=== PATIENT | female | born 1990 | race Caucasian/White ===

== ENCOUNTER 2017-04-14 18:08 | Emergency (ER) | payer OTHER ==
[~2017-04-14] VITALS: Ht 162.6 cm; Wt 96.5 kg
[~2017-04-14 18:08] MED LIST: PNV1TABL4 PO
[2017-04-14 18:14] VITALS: Ht 162.6 cm; Wt 96.5 kg
[2017-04-14] MEDS ORDERED: FAMOTIDINE 20 MG TAB PO STA (19:32)
[2017-04-14] MEDS ORDERED: ONDANSETRON (ODT) 4 MG TAB ODT STA (19:32)
[2017-04-14] MEDS ORDERED: HYDROCODONE/APAP (5/325) TAB PO ONE (20:00)
[2017-04-14 20:09] LABS: ADD UMIC YES; URINE BILIRUBIN (Dip) NEGATIVE (NEGATIVE); URINE BLOOD (Dip) 1+ (NEGATIVE); URINE COLOR LT. YELLOW (YELLOW); URINE GLUCOSE (Dip) NEGATIVE (NEGATIVE); URINE KETONES (Dip) NEGATIVE (NEGATIVE); URINE LEUKOCYTE ESTERASE (Dip) NEGATIVE (NEGATIVE); URINE NITRITE (Dip) NEGATIVE (NEGATIVE); URINE TOTAL PROTEIN (Dip) NEGATIVE (NEGATIVE); URINE UROBILINOGEN (Dip) 0.2 E.U./dL (0.1-1.0)
--- NOTE | 2017-04-14 20:10 | RADRPT ---
PROCEDURE: US Abdomen (right upper quadrant). CLINICAL INDICATION: Abdominal pain. TECHNIQUE: Multiple real-time longitudinal and transverse images of the right upper quadrant of th e abdomen were acquired utilizing a curved array transducer. Images were reviewed on a high-resoluti on PACS workstation. COMPARISON: None FINDINGS: Suboptimal study due to the patient's body habitus. The liver is normal in size and grossly unremarkable in echogenicity without focal mass or intrahepa tic biliary dilatation. The gallbladder is not visualized likely due to contraction. No intra or extrahepatic biliary dilatation is seen. The common bile duct measures 3.7 mm in maximal dimension. The visualized portions of the pancreas are unremarkable with obscuration of the tail of the pancr eas. No free fluid is identified. The right kidney measures 10.9 cm in length. There is normal echogenicity within the right kidney. There is no perinephric fluid collection. No hydronephrosis, mass, or calculus is seen. IMPRESSION: 1. Suboptimal study. 2. The gallbladder is not visualized likely due to contraction. Otherwise unremarkable right upper quadrant ultrasound. RPTAT: HH .Yisel Rockwell MD, MD Date Time Electronically viewed and signed by .Yisel Rockwell MD, MD on 04/14/2017 20:09 .N/
[2017-04-14 20:19] LABS: SQUAMOUS EPITHELIAL CELL,UR FEW; URINE RBCS 0-2 /HPF (0)
[2017-04-14] MEDS ORDERED: METO10TA92 PO (20:28)
[2017-04-14 20:30] LABS: ADD SCAN DIFF NO
--- NOTE | 2017-04-14 20:32 | ERD ---
ER Documentation Chief Complaint Date/Time DATE: 04/14/17 TIME: 20:30 Chief Complaint ABDOMINAL PAIN TODAY HPI This 27-year-old female presents with upper abdominal pain and vomiting started today. She denies any specific right-sided or lower abdominal pain patient has urinary complaints in the vomit is nonbilious nonbloody. Denies any fevers or diarrhea or urinary complaints. Last menstrual period was approximately 1 month ago. ROS All systems reviewed and are negative except as per history of present illness. Medications Home Meds Active Scripts Metoclopramide* (Reglan*) 10 Mg Tablet, 10 MG PO Q6 Y for NAUSEA AND/OR VOMITING , #10 TAB Prov:RAJEEV FLORES MD 04/14/17 Reported Medications Pnv Cmb#95/Ferrous Fumarate/Fa ( MULTIVITAMINS TABLET) 1 Each Tablet, 1 EACH PO DAILY 12/09/13 [None] No Conflict Check 02/04/10 Allergies Allergies: Coded Allergies: No Known Allergies (Verified Allergy, Mild, 02/04/10) PMhx/Soc Medical and Surgical Hx: pt denies Medical Hx, pt denies Surgical Hx History of Surgery: No Hx Neurological Disorder: No Hx Respiratory Disorders: No Hx Cardiac Disorders: No Hx Miscellaneous Medical Probl: No Hx Alcohol Use: No Hx Substance Use: No Hx Tobacco Use: No Smoking Status: Never smoker Physical Exam Vitals Vital Signs Date Time Temp Pulse Resp B/P Pulse Ox O2 Delivery O2 Flow Rate FiO2 04/14/17 18:14 99.2 82 18 132/83 100 Physical Exam Const: [] Alert, [id number] per Head: Atraumatic Eyes: Normal Conjunctiva ENT: Normal External Ears, Nose and Mouth. Neck: Full range of motion..~ No meningismus. Resp: Clear to auscultation bilaterally Cardio: Regular rate and rhythm, no murmurs Abd: Soft, minimal upper abdominal tenderness midepigastric area. No exquisite Menendez centimeters at McBurney's point., non distended. Normal bowel sounds Skin: No petechiae or rashes Back: No midline or flank tenderness Ext: No cyanosis, or edema Neur: Awake and alert Psych: Normal Mood and Affect Results 24 hrs Laboratory Tests Test 04/14/17 19:45 Urine Color LT. YELLOW Urine Clarity CLEAR Urine pH 6.0 Urine Specific Bryant 1.020 Urine Ketones NEGATIVE Urine Nitrite NEGATIVE Urine Bilirubin NEGATIVE Urine Urobilinogen 0.2 E.U./dL Urine Leukocyte Esterase NEGATIVE Urine Microscopic RBC 0-2/HPF Urine Microscopic WBC 0-2/HPF Urine Squamous Epithelial Cells FEW Urine Hemoglobin 1+ Urine Glucose NEGATIVE% Urine Total Protein NEGATIVE Current Medications Medications (Trade) Dose Ordered Sig/Nicholas Route PRN Reason Start Time Stop Time Status Last Admin Dose Admin Famotidine (Pepcid) 20 mg ONCE STAT PO 04/14/17 19:32 04/14/17 19:34 DC Acetaminophen/ Hydrocodone Bitart ([place] (5/325)) 1 tab ONCE ONCE PO 04/14/17 20:00 04/14/17 20:00 DC Ondansetron HCl (Zofran Odt) 8 mg ONCE STAT ODT 04/14/17 19:32 04/14/17 19:34 DC Procedures/MDM Patient has an hCG which appears to be faint positive. Quantitative hCG is pending. Urine shows 1+ hemoglobin, otherwise no leukocytes, nitrites or glucose. Patient is given Zofran 8 mg of mouth felt better after observation treatment with a benign abdomen. CBC and CMP were obtained and are pending. Right upper quadrant ultrasound shows inability to visualize the gallbladder due to body habitus but there is no common bile duct dilatation. Patient will be signed out to nurse practitioner jairo and supervising ER physician. Patient may have vomiting of early . Patient is improved with Zofran and currently suspicion of appendicitis, acute abdomen, emergent causes of patient's presenting symptoms are low. Departure Diagnosis: Primary Impression: Vomiting Vomiting type: unspecified Vomiting Intractability: unspecified Nausea presence: unspecified Qualified Code: R11.10 - Vomiting, intractability of vomiting not specified, presence of nausea not specified, unspecified vomiting type Condition: Stable Patient Instructions: , New Dx, Vomiting (6Y-Adult) Referrals: RADIO PROGRAM DIRECTOR [place] [id number] [address] [place] [address] [facility] [id number] [place] [id number] [address] PAZ, [facility] [address], [address] [address] DR JO, [facility] [address] [facility], [place] [address] [facility] [address] [place] [address] [facility], [facility] [address] [address] HOWELL, GUER[place] [address], [place] [address] DR CESPEDES, ANGY [address] [facility], [place] [address] DR LOBATO, [facility] [address] [place] [address] Additional Instructions: Symptoms likely due to . See OB for follow-up or return for bleeding, new worsening symptoms. Recheck in 2 days for abdominal pain or bleeding. RAJEEV FLORES MD April 14, 2017 20:32
[2017-04-14 20:34] LABS: BASOPHILS % 0.2 % (0.0-2.0); EOSINOPHILS # 0.1 10^3/ul (0.0-0.5); EOSINOPHILS % 0.5 % (0.0-7.0); HEMOGLOBIN 13.2 g/dl (12.0-16.0); LYMPHOCYTES # 1.5 10^3/ul (0.8-2.9); LYMPHOCYTES % 14.4 % (15.0-51.0); MEAN CORPUSCULAR HEMOGLOBIN 28.1 pg (29.0-33.0); MEAN CORPUSCULAR VOLUME 85.3 fl (82.0-101.0); MEAN PLATELET VOLUME 10.2 fl (7.4-10.4); MONOCYTE # 0.6 10^3/ul (0.3-0.9); MONOCYTES % 5.6 % (0.0-11.0); NEUTROPHILS % 78.8 % (39.0-77.0); PLATELET COUNT 272 10^3/UL (140-415); RED BLOOD COUNT 4.69 10^6/ul (4.20-5.40); RED CELL DISTRIBUTION WIDTH 13.3 % (11.5-14.5); WHITE BLOOD COUNT 10.2 10^3/ul (4.8-10.8)
[2017-04-14 20:56] LABS: ALBUMIN 4.1 g/dl (3.3-4.9); ALBUMIN/GLOBULIN RATIO 1.07; CALCIUM 9.5 mg/dl (8.4-10.2); CREATININE 0.68 mg/dl (0.44-1.00); POTASSIUM 4.4 mmol/L (3.5-5.1); TOTAL PROTEIN 7.9 g/dl (6.1-8.1)
--- NOTE | 2017-04-14 21:24 | RADRPT ---
PROCEDURE: US Obstetric less than 14 weeks. CLINICAL INDICATION: . Evaluate size and dates. TECHNIQUE: Transabdominal and transvaginal imaging of the pelvis was performed. Images are review ed on a high-resolution PACS workstation. COMPARISON: None available FINDINGS: Irregularly shaped anechoic collection is present within the endometrial cavity, measuring 20 x 4 x 21 mm, possibly gestational sac. No structures are identified. Collection size corresponds t o 6 weeks 1 day gestational age. Bilateral ovaries are unremarkable. No ovarian torsion, adnexal mass or pelvic free fluid is seen. IMPRESSION: 1. Irregularly shaped collection is present within the endometrial cavity, as above, possibly early gestational sac. Viability cannot be confirmed at this time. Given irregular shape, possibility of failed early should be considered. Continued sonographic follow-up is recommended. 2. No sonographic evidence of ectopic gestation is seen at this time. RPTAT: HDWR .Adryan Hoang MD, MD Date Time Electronically viewed and signed by .Adryan Hoang MD, on 04/14/2017 21:24 .R/
--- NOTE | 2017-04-14 21:37 | QN ---
Documentation Comment Dr Monet Lopez signed out this patient to me with pending ultrasound results, beta hCG quantitative results. Results were reviewed, but hCG quantitative is less than 2.4, ultrasound was reviewed, there is an irregular shaped possibly early gestational sac can be symptoms of early failed . Further follow up with OB doctor or repeat ultrasound is recommended for further evaluation and checking of the EGD quantitative. Patient is advised to follow-up with OB doctor or here in emergency department within 48 hours for repeat beta hCG and possibly repeat ultrasound within one week. Low suspicion for ectopic at this time. Patient's pain is controlled at this time. Patient is discharged according to Monet Lopez instructions PROCEDURE: US Obstetric less than 14 weeks. CLINICAL INDICATION: . Evaluate size and dates. TECHNIQUE: Transabdominal and transvaginal imaging of the pelvis was performed. Images are reviewed on a high-resolution PACS workstation. COMPARISON: None available FINDINGS: Irregularly shaped anechoic collection is present within the endometrial cavity , measuring 20 x 4 x 21 mm, possibly gestational sac. No structures are identified. Collection size corresponds to 6 weeks 1 day gestational age. Bilateral ovaries are unremarkable. No ovarian torsion, adnexal mass or pelvic free fluid is seen. IMPRESSION: 1. Irregularly shaped collection is present within the endometrial cavity, as above, possibly early gestational sac. Viability cannot be confirmed at this time. Given irregular shape, possibility of failed early should be considered. Continued sonographic follow-up is recommended. 2. No sonographic evidence of ectopic gestation is seen at this time. RPTAT: HDWR .Adryan Hoang MD, MD Date Time Electronically viewed and signed by .Adryan Hoang MD, MD on 04/14/2017 21: 24 .R/ CC: RAYA GRECO NP Disposition. Home. Stable RAYA GRECO NP April 14, 2017 21:37
== END 2017-04-14 21:59 | disposition home or self-care (01) ==
LOC: FTE 18:08
DX: R11.10 Vomiting, unspecified (principal)
CPT/HCPCS: 76705; 76801; 76817; 80053; 81001; 83690; 84702; 85025; Z7610; 81003

== ENCOUNTER 2017-04-19 11:16 | Emergency (ER) | payer OTHER ==
[~2017-04-19] VITALS: Wt 95.0 kg
[~2017-04-19 11:16] MED LIST changes: +METO10TA92 PO
[2017-04-19 13:35] LABS: ADD SCAN DIFF NO
[2017-04-19 13:41] LABS: ADD UMIC YES; URINE BILIRUBIN (Dip) NEGATIVE (NEGATIVE); URINE BLOOD (Dip) 3+ (NEGATIVE); URINE COLOR LT. YELLOW (YELLOW); URINE GLUCOSE (Dip) NEGATIVE (NEGATIVE); URINE KETONES (Dip) NEGATIVE (NEGATIVE); URINE LEUKOCYTE ESTERASE (Dip) NEGATIVE (NEGATIVE); URINE NITRITE (Dip) NEGATIVE (NEGATIVE); URINE TOTAL PROTEIN (Dip) NEGATIVE (NEGATIVE); URINE UROBILINOGEN (Dip) 0.2 E.U./dL (0.1-1.0)
[2017-04-19 13:44] LABS: BASOPHILS % 0.3 % (0.0-2.0); EOSINOPHILS # 0.1 10^3/ul (0.0-0.5); EOSINOPHILS % 1.5 % (0.0-7.0); HEMATOCRIT 41.2 % (37.0-47.0); HEMOGLOBIN 13.5 g/dl (12.0-16.0); LYMPHOCYTES # 1.9 10^3/ul (0.8-2.9); LYMPHOCYTES % 25.2 % (15.0-51.0); MEAN CORPUSCULAR HGB CONC 32.8 g/dl (32.0-37.0); MEAN CORPUSCULAR VOLUME 85.5 fl (82.0-101.0); MONOCYTE # 0.5 10^3/ul (0.3-0.9); MONOCYTES % 7.1 % (0.0-11.0); NEUTROPHIL # 4.8 10^3/ul (1.6-7.5); NEUTROPHILS % 65.5 % (39.0-77.0); PLATELET COUNT 267 10^3/UL (140-415); RED BLOOD COUNT 4.82 10^6/ul (4.20-5.40); RED CELL DISTRIBUTION WIDTH 13.2 % (11.5-14.5); WHITE BLOOD COUNT 7.3 10^3/ul (4.8-10.8)
--- NOTE | 2017-04-19 14:08 | RADRPT ---
PROCEDURE: US Pelvis. CLINICAL INDICATION: vaginal bleeding TECHNIQUE: Multiple sonographic images of the pelvis were obtained utilizing a transabdominal and endovaginal technique. The images were reviewed on a PACS workstation. COMPARISON: 04/14/17 FINDINGS: The uterus is normal in size and demonstrates a normal appearance of the myometrium. The endometria l stripe is homogeneous in appearance and has the thickness of 3 mm. No intrauterine gestation is noted. The previously seen cystic structure within the endometrium is no longer visualized. The right ovary was not seen. The left ovary measures 2.4 x 1.3 x 1.9 cm. No free fluid is present within the pelvis.. RPTAT: AA IMPRESSION: No intrauterine gestation visualized. Previously seen fluid collection in the endometrium is no longer visualized. Differential diagnosis includes early , missed or ectopic . Follow-up ultrasound and HCG levels is recommended. .Matthias Chaudhry MD, MD Date Time Electronically viewed and signed by .Matthias Chaudhry MD, on 04/19/2017 14:07 .S/
--- NOTE | 2017-04-19 14:35 | ERD ---
ER Documentation Chief Complaint Date/Time DATE: 04/19/17 TIME: 14:31 Chief Complaint 6 weeks regnant with spotting HPI This is a 27-year-old female presents to the ER for follow-up. Patient was seen here last week and had a positive test, however intrauterine gestational was not seen on ultrasound. Patient states that she began to bleed more as if she is on her period. She is also complaining of mild pelvic cramping. She denies any vaginal discharge. She denies any urinary frequency or dysuria. Her vomiting has resolved. A0. Had her last normal menstrual period was April 03, 2017. ROS 12 point review of systems was done, all negative except per HPI. Medications Home Meds Active Scripts Metoclopramide* (Reglan*) 10 Mg Tablet, 10 MG PO Q6 Y for NAUSEA AND/OR VOMITING , #10 TAB Prov:RAJEEV FLORES MD 04/14/17 Reported Medications Pnv Cmb#95/Ferrous Fumarate/Fa ( MULTIVITAMINS TABLET) 1 Each Tablet, 1 EACH PO DAILY 12/09/13 [None] No Conflict Check 02/04/10 Allergies Allergies: Coded Allergies: No Known Allergies (Verified Allergy, Mild, 04/19/17) PMhx/Soc Medical and Surgical Hx: pt denies Medical Hx, pt denies Surgical Hx History of Surgery: No Hx Neurological Disorder: No Hx Respiratory Disorders: No Hx Cardiac Disorders: No Hx Miscellaneous Medical Probl: No Hx Alcohol Use: No Hx Substance Use: No Hx Tobacco Use: No Smoking Status: Never smoker Physical Exam Vitals Vital Signs Date Time Temp Pulse Resp B/P Pulse Ox O2 Delivery O2 Flow Rate FiO2 04/19/17 11:18 97.9 89 18 127/87 99 Physical Exam GENERAL: The patient is well developed and appropriate for usual state of health , in no apparent distress. HEENT: Atraumatic. CHEST: Clear to auscultation bilaterally. There are no rales, wheezes or rhonchi. HEART: Regular rate and rhythm. No murmurs, clicks, rubs or gallops. ABDOMEN: Soft, nontender and nondistended. Good bowel sounds. No rebound or guarding. No gross peritonitis. No gross organomegaly or masses. No Menendez sign or McBurney point tenderness. BACK: No midline or flank tenderness. NEURO: Alert and oriented Result Diagram: 04/19/17 1320 Results 24 hrs Laboratory Tests Test 04/19/17 13:17 04/19/17 13:20 Urine Color LT. YELLOW Urine Clarity CLEAR Urine pH 6.0 Urine Specific [place] 1.025 Urine Ketones NEGATIVE Urine Nitrite NEGATIVE Urine Bilirubin NEGATIVE Urine Urobilinogen 0.2 E.U./dL Urine Leukocyte Esterase NEGATIVE Urine Microscopic RBC 10-25/HPF Urine Microscopic WBC 0-2/HPF Urine Epithelial Cells OCCASIONAL Urine Hemoglobin 3+ Urine Glucose NEGATIVE% Urine Total Protein NEGATIVE White Blood Count 7.310^3/ul Red Blood Count 4.8210^6/ul Hemoglobin 13.5g/dl Hematocrit 41.2% Mean Corpuscular Volume 85.5fl Mean Corpuscular Hemoglobin 28.0pg Mean Corpuscular Hemoglobin Concent 32.8g/dl Red Cell Distribution Width 13.2% Platelet Count 31603^3/UL Mean Platelet Volume 10.0fl Neutrophils % 65.5% Lymphocytes % 25.2% Monocytes % 7.1% Eosinophils % 1.5% Basophils % 0.3% Nucleated Red Blood Cells % 0.0/100WBC Neutrophils # 4.810^3/ul Lymphocytes # 1.910^3/ul Monocytes # 0.510^3/ul Eosinophils # 0.110^3/ul Basophils # 0.010^3/ul Nucleated Red Blood Cells # 0.010^3/ul Beta HCG, Quantitative < 2.4mIU/ml Procedures/MDM Differential diagnosis: Threatened , missed , incomplete , ectopic , molar , UTI, pyelonephritis. At this time there is no evidence of intrauterine gestation patient's quantitative hCG is below 2.4. Suspicion For ectopic is low. Patient's quantitative hCG was below 2.4 at last visit, however urine test was positive. Patient may have miscarried vs. false positive on urine test. At this time patient is hemodynamically stable, she is afebrile and well- appearing. She is to follow-up with her primary care doctor within 1-2 days or return to ER sooner if symptoms worsen. My medical decision making was shared with the patient she understands and agrees with plan. Departure Diagnosis: Primary Impression: Vaginal bleeding Condition: Stable Patient Instructions: Missed Miscarriage Referrals: EDINSON MYLES (PCP) Additional Instructions: Call your primary care doctor TOMORROW for an appointment during the next 1-2 days.See the doctor sooner or return here if your condition worsens before your appointment time. EZE MEZA April 19, 2017 14:35
== END 2017-04-19 14:48 | disposition home or self-care (01) ==
LOC: FTE 11:16
DX: O20.9 Hemorrhage in early pregnancy, unspecified (principal); R10.2 Pelvic and perineal pain; Z3A.01 Less than 8 weeks gestation of pregnancy
CPT/HCPCS: 76801; 76817; 81001; 84702; 85025; 86900; 86901; Z7502; 81003

== ENCOUNTER 2017-10-19 21:04 | Emergency (ER) | payer OTHER ==
[~2017-10-19] VITALS: Ht 162.6 cm; Wt 98.5 kg
[2017-10-19 21:07] VITALS: Ht 162.6 cm; Wt 98.5 kg
[2017-10-20] MEDS ORDERED: ONDANSETRON 4 MG INJ IV STA (01:25)
[2017-10-20] MEDS ORDERED: SOD CHLORIDE 0.9% 1,000 ML IV STA (01:25)
--- NOTE | 2017-10-20 01:40 | ERD ---
ER Documentation Chief Complaint Chief Complaint upper abd pain radaiting to back x 1 week HPI 27-year-old female presents to emergency department for complaints of upper abdominal pain radiating to the lower abdomen, and the back, complaints of abdominal bloating and vomiting. She been having it for 1 week now. Patient describes the pain as sharp pain, 6/10 scale, accompanied with vomiting. Patient does not have any blood in the vomit. Patient does not have any blood in stool or black stool. Patient does not have any diarrhea or constipation. LMP 10/13/2017. Patient denies any vaginal bleeding. Patient denies any flank pain. Patient denies any hematuria or dysuria. ROS All systems reviewed and are negative except as per history of present illness. Medications Home Meds Active Scripts Metoclopramide* (Reglan*) 10 Mg Tablet, 10 MG PO Q6 Y for NAUSEA AND/OR VOMITING , #10 TAB Prov:RAJEEV FLORES MD 04/14/17 Reported Medications Pnv Cmb#95/Ferrous Fumarate/Fa ( MULTIVITAMINS TABLET) 1 Each Tablet, 1 EACH PO DAILY 12/09/13 [None] No Conflict Check 02/04/10 Allergies Allergies: Coded Allergies: No Known Allergies (Verified Allergy, Mild, 04/19/17) PMhx/Soc Medical and Surgical Hx: pt denies Medical Hx, pt denies Surgical Hx History of Surgery: No Hx Neurological Disorder: No Hx Respiratory Disorders: No Hx Cardiac Disorders: No Hx Miscellaneous Medical Probl: No Hx Alcohol Use: No Hx Substance Use: No Hx Tobacco Use: No Smoking Status: Never smoker FmHx Family History: No coronary disease, No diabetes, No other Physical Exam Vitals Vital Signs Date Time Temp Pulse Resp B/P Pulse Ox O2 Delivery O2 Flow Rate FiO2 10/19/17 21:07 99.7 74 20 118/74 100 Physical Exam GENERAL: The patient is well developed and appropriate for usual state of health, in no apparent distress. CHEST: Clear to auscultation bilaterally. There are no rales, wheezes or rhonchi. HEART: Regular rate and rhythm. No murmurs, clicks, rubs or gallops. No S3 or S4. ABDOMEN: Soft, nontender and nondistended. Good bowel sounds. No rebound or guarding. No gross peritonitis. No gross organomegaly or masses. No Menendez sign or McBurney point tenderness. BACK: No midline or flank tenderness. EXTREMITIES: Equal pulses bilaterally. There is no peripheral clubbing, cyanosis or edema. No focal swelling or erythema. Full range of motion. Grossly neurovascularly intact. NEURO: Alert and oriented. Cranial nerves 2-12 intact. Motor strength in all 4 extremities with 5/5 strength. Sensation grossly intact. Normal speech and gait. SKIN: There is no apparent rash or petechia. The skin is warm and dry. HEMATOLOGIC AND LYMPHATIC: There is no evidence of excessive bruising or lymphedema. No gross cervical, axillary, or inguinal lymphadenopathy. Result Diagram: 10/20/1722810/20/17228 Results 24 hrs Laboratory Tests Test 10/20/17 01:40 10/20/17 01:51 10/20/17 02:29 Urine Color YELLOW Urine Clarity CLEAR Urine pH 6.0 Urine Specific [place] 1.027 Urine Ketones NEGATIVEmg/dL Urine Nitrite NEGATIVEmg/dL Urine Bilirubin NEGATIVEmg/dL Urine Urobilinogen NEGATIVEmg/dL Urine Leukocyte Esterase NEGATIVELeu/ul Urine Hemoglobin NEGATIVEmg/dL Urine Glucose NEGATIVEmg/dL Urine Total Protein NEGATIVEmg/dl Bedside Urine pH (LAB) 6.5 Bedside Urine Protein (LAB) Negative Bedside Urine Glucose (UA) Negative Bedside Urine Ketones (LAB) Trace Bedside Urine Blood 1+ Bedside Urine Nitrite (LAB) Negative Bedside Urine Leukocyte Esterase (L Negative White Blood Count 9.710^3/ul Red Blood Count 4.8110^6/ul Hemoglobin 13.5g/dl Hematocrit 40.5% Mean Corpuscular Volume 84.2fl Mean Corpuscular Hemoglobin 28.1pg Mean Corpuscular Hemoglobin Concent 33.3g/dl Red Cell Distribution Width 13.6% Platelet Count 77804^3/UL Mean Platelet Volume 10.5fl Neutrophils % 68.4% Lymphocytes % 22.2% Monocytes % 7.0% Eosinophils % 1.9% Basophils % 0.2% Nucleated Red Blood Cells % 0.0/100WBC Neutrophils # 6.610^3/ul Lymphocytes # 2.210^3/ul Monocytes # 0.710^3/ul Eosinophils # 0.210^3/ul Basophils # 0.010^3/ul Nucleated Red Blood Cells # 0.010^3/ul Sodium Level 142mmol/L Potassium Level 4.0mmol/L Chloride Level 107mmol/L Carbon Dioxide Level 21mmol/L Anion Gap 18 Blood Urea Nitrogen 16mg/dl Creatinine 0.78mg/dl Glucose Level 114mg/dl Calcium Level 8.9mg/dl Total Bilirubin 0.2mg/dl Direct Bilirubin 0.00mg/dl Indirect Bilirubin 0.2mg/dl Aspartate Amino Transf (AST/SGOT) 29IU/L Alanine Aminotransferase (ALT/SGPT) 37IU/L Alkaline Phosphatase 97IU/L Total Protein 7.9g/dl Albumin 4.2g/dl Globulin 3.70g/dl Albumin/Globulin Ratio 1.13 Lipase 116U/L Current Medications Medications (Trade) Dose Ordered Sig/Nicholas Route PRN Reason Start Time Stop Time Status Last Admin Dose Admin Sodium Chloride (NS) 1,000 ml @ 1,000 mls/hr Q1H STAT IV 10/20/17 01:25 10/20/17 02:24 DC 10/20/17 02:34 Ondansetron HCl (Zofran Inj) 4 mg ONCE STAT IV 10/20/17 01:25 10/20/17 01:26 DC Morphine Sulfate (morphine) 4 mg ONCE STAT IV 10/20/17 03:50 10/20/17 03:51 DC 10/20/17 03:55 Patient was given Zofran here in the emergency department. After treatment, patient was able to tolerate po fluids here in the emergency department without any vomiting. There is no signs and symptoms of dehydration. Normal saline IV bolus was given here in emergency department for rehydration, patient tolerated IV fluids. PROCEDURE: CT Abdomen and pelvis without contrast. CLINICAL INDICATION: Abdominal pain. TECHNIQUE: CT scan of the abdomen and pelvis was performed on a multi- detector high-resolution CT scanner. Contiguous axial images were obtained from the lung bases to the ischial tuberosities without intravenous contrast. Coronal and sagittal reformatted images were also obtained. Images were reviewed on the PACS workstation. DICOM images are available. One or more of the following dose reduction techniques were used: - Automated exposure control. - Adjustment of the mA and/or kV according to patient size. - Use of iterative reconstruction technique. Exam CTD/vol = 19.49 mGy. Total exam DLP = 1159.45 mGy-cm. COMPARISON: None. FINDINGS: Evaluation of the lung bases demonstrates no pleural or parenchymal disease. Abdomen: The liver is normal in size. There is no focal mass or dilatation of the biliary tree. The gallbladder is not distended. Multiple gallstones are identified. The spleen, pancreas and bilateral adrenal glands are within normal limits. Bilateral kidneys are normal in size with no contour deforming mass identified. There is no radiopaque renal or ureteral calculus identified. There is no hydronephrosis or hydroureter. There is no retroperitoneal adenopathy. The abdominal aorta is of normal caliber. There is no abnormal bowel wall thickening or distension. There is no bowel obstruction or free air. A normal appendix is identified. There is no diverticulosis or diverticulitis. There is no ascites. Pelvis: The bladder is unremarkable. The uterus and adnexa are within normal limits. There is no significant pelvic adenopathy or free fluid. Evaluation of the osseous structures demonstrates no suspicious lytic or blastic lesion. IMPRESSION: No acute abnormality identified within the abdomen and pelvis. Cholelithiasis. .Alon Bangura MD, Date Time Electronically viewed and signed by .Alon Bangura MD, MD on 10/20/2017 02:57 .T/ CC: RAYA GRECO [employer] Procedures/MDM Medical Decision Making: This was likely is consistent with biliary colic. There is low suspicion for abdominal emergencies at this time. Patients abdominal exam is normal at this time. Patients radiology exam does not show any abdominal emergencies at this time. There is low suspicion for appendicitis , cholecystitis, abdominal aortic aneurysms or peritonitis at this time. There is low suspicion for sepsis. Patient appears well and is hemodynamically stable. Disposition: Home. Condition: Stable Prescription [place], Zofran Instructions: Patient is advised to take medications as prescribed. Patient is advised to rest, increase fluid intake and do brat diet for next 1-2 days and progress as tolerated. Patient is advised that if symptoms are worse, severe abdominal pain, uncontrolled vomiting, high fever, severe flank pain, worst signs and symptoms, to return to the emergency department immediately. Otherwise, patient can follow up with primary care doctor in 5-7 days. Disclaimer: Inadvertent spelling and grammatical errors are likely due to EHR/ dictation software use and do not reflect on the overall quality of patient care. Also, please note that the electronic time recorded on this note does not necessarily reflect the actual time of the patient encounter. Departure Diagnosis: Primary Impression: Biliary colic Condition: Stable Patient Instructions: Biliary Colic With Gallstone (Confirmed) Additional Instructions: Patient is advised to take medications as prescribed. Patient is advised to rest , increase fluid intake and do brat diet for next 1-2 days and progress as tolerated. Patient is advised that if symptoms are worse, severe abdominal pain , uncontrolled vomiting, high fever, severe flank pain, worst signs and symptoms , to return to the emergency department immediately. Otherwise, patient can follow up with primary care doctor in 5-7 days. RAYA GRECO NP Oct 20, 2017 01:40
[2017-10-20 01:52] LABS: URINE BLOOD (Dip) POC 1+ (NEGATIVE)
[2017-10-20 02:44] LABS: ADD UMIC NO; UR ASCORBIC ACID NEGATIVE (NEGATIVE); UR BILIRUBIN (Dip) NEGATIVE (NEGATIVE); UR BLOOD (Dip) NEGATIVE (NEGATIVE); UR CLARITY CLEAR (CLEAR); UR COLOR YELLOW (YELLOW); UR GLUCOSE (Dip) NEGATIVE (NEGATIVE); UR KETONES (Dip) NEGATIVE (NEGATIVE); UR LEUKOCYTE ESTERASE (Dip) NEGATIVE Leu/ul (NEGATIVE); UR NITRITE (Dip) NEGATIVE (NEGATIVE); UR SPECIFIC GRAVITY (Dip) 1.027 (1.003-1.030); UR TOTAL PROTEIN (Dip) NEGATIVE (NEGATIVE); UR UROBILINOGEN (Dip) NEGATIVE (NEGATIVE)
--- NOTE | 2017-10-20 02:57 | RADRPT ---
PROCEDURE: CT Abdomen and pelvis without contrast. CLINICAL INDICATION: Abdominal pain. TECHNIQUE: CT scan of the abdomen and pelvis was performed on a multi-detector high-resolution CT scanner. Contiguous axial images were obtained from the lung bases to the ischial tuberosities wit hout intravenous contrast. Coronal and sagittal reformatted images were also obtained. Images were reviewed on the PACS workstation. DICOM images are available. One or more of the following dose reduction techniques were used: - Automated exposure control. - Adjustment of the mA and/or kV according to patient size. - Use of iterative reconstruction technique. Exam CTD/vol = 19.49 mGy. Total exam DLP = 1159.45 mGy-cm. COMPARISON: None. FINDINGS: Evaluation of the lung bases demonstrates no pleural or parenchymal disease. Abdomen: The liver is normal in size. There is no focal mass or dilatation of the biliary tree. T he gallbladder is not distended. Multiple gallstones are identified. The spleen, pancreas and bilate ral adrenal glands are within normal limits. Bilateral kidneys are normal in size with no contour d eforming mass identified. There is no radiopaque renal or ureteral calculus identified. There is n o hydronephrosis or hydroureter. There is no retroperitoneal adenopathy. The abdominal aorta is of normal caliber. There is no abnormal bowel wall thickening or distension. There is no bowel obstruction or free air . A normal appendix is identified. There is no diverticulosis or diverticulitis. There is no asci felecia. Pelvis: The bladder is unremarkable. The uterus and adnexa are within normal limits. There is no significant pelvic adenopathy or free fluid. Evaluation of the osseous structures demonstrates no suspicious lytic or blastic lesion. IMPRESSION: No acute abnormality identified within the abdomen and pelvis. Cholelithiasis. .Alon Bangura MD, MD Date Time Electronically viewed and signed by .Alon Bangura MD, MD on 10/20/2017 02:57 .T/
[2017-10-20 03:10] LABS: BASOPHILS % 0.2 % (0.0-2.0); EOSINOPHILS # 0.2 10^3/ul (0.0-0.5); EOSINOPHILS % 1.9 % (0.0-7.0); HEMATOCRIT 40.5 % (37.0-47.0); HEMOGLOBIN 13.5 g/dl (12.0-16.0); LYMPHOCYTES # 2.2 10^3/ul (0.8-2.9); LYMPHOCYTES % 22.2 % (15.0-51.0); MEAN CORPUSCULAR HEMOGLOBIN 28.1 pg (29.0-33.0); MEAN CORPUSCULAR HGB CONC 33.3 g/dl (32.0-37.0); MEAN CORPUSCULAR VOLUME 84.2 fl (82.0-101.0); MEAN PLATELET VOLUME 10.5 fl (7.4-10.4); MONOCYTE # 0.7 10^3/ul (0.3-0.9); NEUTROPHIL # 6.6 10^3/ul (1.6-7.5); NEUTROPHILS % 68.4 % (39.0-77.0); PLATELET COUNT 250 10^3/UL (140-415); RED BLOOD COUNT 4.81 10^6/ul (4.20-5.40); RED CELL DISTRIBUTION WIDTH 13.6 % (11.5-14.5); WHITE BLOOD COUNT 9.7 10^3/ul (4.8-10.8)
[2017-10-20] MEDS ORDERED: morphine 4 MG/ML VIAL IV STA (03:50)
[2017-10-20 04:25] LABS: ALBUMIN 4.2 g/dl (3.3-4.9); ALBUMIN/GLOBULIN RATIO 1.13; BILIRUBIN,INDIRECT 0.2 mg/dl (0-1.1); BILIRUBIN,TOTAL 0.2 mg/dl (0.2-1.3); CALCIUM 8.9 mg/dl (8.4-10.2); CREATININE 0.78 mg/dl (0.44-1.00); TOTAL PROTEIN 7.9 g/dl (6.1-8.1)
[2017-10-20] MEDS ORDERED: ONDA4TAB14 PO (04:44)
[2017-10-20] MEDS ORDERED: HYDR-906 PO (04:44)
[2017-10-20 05:30] VITALS: BP 126/75; PULSE 80; RESP 16; TEMP 98.8
== END 2017-10-20 05:31 | disposition home or self-care (01) ==
LOC: FTE 21:04
DX: K80.50 Calculus of bile duct without cholangitis or cholecystitis without obstruction (principal)
CPT/HCPCS: 74176; 80053; 81003; 83690; 85025; 96374; 96376; J2270; J7030; Z7502

== ENCOUNTER 2018-07-12 18:08 | Emergency (ER) | END 2018-07-12 22:09 | disposition home or self-care (01) ==

== ENCOUNTER 2018-08-29 14:56 | Emergency (ER) | END 2018-08-29 19:30 | disposition home or self-care (01) ==

== ENCOUNTER 2018-11-26 12:49 | Outpatient (CLI) | END 2018-11-26 15:40 | disposition home or self-care (01) ==